=== PATIENT | male | born 1985 | race Caucasian/White ===

== ENCOUNTER 2017-10-18 20:33 | Emergency (ER) | payer OTHER ==
[~2017-10-18] VITALS: Ht 180.3 cm; Wt 100.0 kg
[~2017-10-18 20:33] MED LIST: ALBU8.5H5 INH; FLUT1DIS5; FLUT1DIS5 IH; IPRA14.7; OMEP-110; OMEP40CA6 PO
[2017-10-18 20:38] VITALS: BP 156/101
[2017-10-18] MEDS ORDERED: DIPH,PERTUSS(ACELL),TET VAC/PF 0.5 ML IM-VACC ONE ×2 (21:30→21:32)
[2017-10-18] MEDS ORDERED: LIDOCAINE 1%, 20ML INFIL ONE (21:30)
[2017-10-18] MEDS ORDERED: LIDOCAINE 1%, 20ML ONE (21:32)
== END 2017-10-18 22:54 | disposition home or self-care (01) ==
LOC: ED 22:06
DX: S06.0X0A Concussion without loss of consciousness, initial encounter (principal); S01.01XA Laceration without foreign body of scalp, initial encounter; W01.0XXA Fall on same level from slipping, tripping and stumbling without subsequent striking against object, initial encounter; Y93.89 Activity, other specified; Y92.009 Unspecified place in unspecified non-institutional (private) residence as the place of occurrence of the external cause; Y99.9 Unspecified external cause status
CPT/HCPCS: 12031; 70450; 90471; 90715; 99284